=== PATIENT | male | born 1995 | race Caucasian/White ===

== ENCOUNTER 2021-06-12 07:46 | Day surgery (SDC) | payer OTHER ==
[2021-06-12] VITALS (9 sets, daily range): BP systolic 100–139; BP diastolic 40–92
[2021-06-12 09:33] LABS: ALBUMIN 4.1 g/dL (3.2-5.0); BILIRUBIN, TOTAL 0.6 mg/dL (0.0-1.4); CREATININE 2.5 mg/dL (0.7-1.3); POTASSIUM 3.9 mmol/l (3.5-5.1); TOTAL PROTEIN 7.2 g/dL (6.3-8.2)
[2021-06-12 09:37] LABS: HEMATOCRIT 48.5 % (39.0-50.0); IMMATURE GRANULOCYTES 0.2 % (0.0-5.0); MEAN CELL VOLUME 90.8 fL CALC (80.0-100.0); NEUT# 9.78 thou/uL (1.82-7.42); RED BLOOD COUNT 5.34 mill/uL (4.70-6.10); RED CELL DISTRI WIDTH 13.6 % (11.5-15.5)
[2021-06-12] MEDS ORDERED: BACLOFEN10 MG PO (10:01)
[2021-06-12] MEDS ORDERED: GABAPENTIN100 MG PO (10:02)
[2021-06-12] MEDS ORDERED: CLONIDINE0.1 MG PO (10:03)
[2021-06-12] MEDS ORDERED: XANAX1 MG PO (10:03)
[2021-06-12] MEDS ORDERED: LISINOPRIL20 MG PO (10:03)
[2021-06-12] MEDS ORDERED: REMERON15 MG PO (10:04)
[2021-06-13] VITALS: BP 118/66
[2021-06-13 04:00] VITALS: BP 137/55
[2021-06-13 04:53] LABS: ALBUMIN 3.7 g/dL (3.2-5.0); ALKALINE PHOSPHATASE 60 u/l (38-126); ANION GAP 15 (6-22 (CALC)); BILIRUBIN, TOTAL 0.8 mg/dL (0.0-1.4); BUN 23 mg/dL (9-20); BUN/CREATININE RATIO 18 (12-20 (CALC)); CARBON DIOXIDE 20 mmol/l (22-30); CHLORIDE 107 mmol/l (95-108); CREATININE 1.3 mg/dL (0.7-1.3); GFR FOR AFR.AMER. > 60 ML/MIN (>=60 (CALC)); MAGNESIUM 1.8 mg/dL (1.6-2.3); POTASSIUM 3.9 mmol/l (3.5-5.1); SGOT/AST 58 u/l (17-59); SODIUM 139 mmol/l (137-146); TOTAL PROTEIN 6.9 g/dL (6.3-8.2)
[2021-06-13 07:15] VITALS: BP 82/39
[2021-06-13 07:25] LABS: GFR > 60 ML/MIN (>=60 (CALC))
[2021-06-13 14:00] VITALS: BP 102/63
== END 2021-06-13 18:00 | disposition home or self-care (01) | DRG 897 ==
LOC: ANR 07:46 → MS2 07:47 → ANR 10:26
PROVIDERS: ATTEND Anesthesiology
DX: F11.20 Opioid dependence, uncomplicated (principal)
CPT/HCPCS: J2060; J2354